=== PATIENT | female | born 1975 ===

== ENCOUNTER 2021-09-30 17:34 | Emergency (ER) | payer SELFPAY ==
[~2021-09-30] VITALS: Ht 154.9 cm; Wt 45.5 kg
[2021-09-30 18:30] VITALS: BP 135/58
== END 2021-09-30 22:25 | disposition home or self-care (01) ==
LOC: EMS 17:36
DX: F41.9 Anxiety disorder, unspecified (principal); F19.10 Other psychoactive substance abuse, uncomplicated; F17.210 Nicotine dependence, cigarettes, uncomplicated
CPT/HCPCS: 99283